=== PATIENT | female | born 1960 | race Two or more races ===

== ENCOUNTER 2020-01-20 04:42 | Emergency (ER) | payer BC ==
[~2020-01-20] VITALS: Ht 167.6 cm; Wt 56.7 kg
[2020-01-23] MEDS ORDERED: KETO10TA2 PO (10:00)
[2020-01-23] MEDS ORDERED: INTESTINEX680 M2 PO (10:00)
[2020-01-23] MEDS ORDERED: AMOX1TAB5 PO (10:00)
== END 2020-01-20 13:50 | disposition home or self-care (01) ==
LOC: ER 04:42
DX: S01.82XA Laceration with foreign body of other part of head, initial encounter (principal); S60.222A Contusion of left hand, initial encounter; W18.09XA Striking against other object with subsequent fall, initial encounter; Y93.89 Activity, other specified; Y92.098 Other place in other non-institutional residence as the place of occurrence of the external cause; Y99.8 Other external cause status